=== PATIENT | female | born 1960 | race Caucasian/White ===

== ENCOUNTER 2021-07-28 01:12 | Emergency (ER) | payer OTHER, MEDICAID ==
--- NOTE | 2021-07-28 01:42 | EDM.PDOC ---
ED HPI GENERAL MEDICAL PROBLEM - General Chief Complaint: General Stated Complaint: MASECTOMY CONCERNS Time Seen by Provider: 07/28/21 01:30 Source of Information: Reports: Patient History Limitations: Reports: No Limitations - History of Present Illness INITIAL COMMENTS - FREE TEXT/NARRATIVE: Patient is a 61-year-old female presenting to the emergency room with concerns about her right breast. She states that she had a bilateral mastectomy done which was followed by breast reconstruction. The right breast demonstrated small area of wound opening yesterday and she went into the [place] emergency room. Her surgeon scheduled her for revision on Sunday but earlier this morning the wound opened up even more. Patient is unsure of what she should do. She is already taking clindamycin. She states she lifted up her grandchild today that may have contributed. She is otherwise denying fevers, chills, pain, discharge. - Related Data Allergies Allergy/AdvReac Type Severity Reaction Status Date / Time No Known Allergies Allergy Verified 07/28/21 01:30 ED ROS GENERAL - Review of Systems Review Of Systems: Comprehensive ROS is negative, except as noted in HPI. ED EXAM, GENERAL - Physical Exam Exam: See Below Free Text/Narrative:: I have reviewed the triage vital signs Const: Well nourished, well developed, appears stated age Eyes: no conjunctival injection HENT: No signs of trauma or swelling, Neck supple without meningismus CV: Regular Rate Rhythm, Warm, well-perfused extremities RESP: Unlabored respiratory effort Breast: (DIANNE Moran present) right breast demonstrates wound dehiscence in the area where the nipple would be. The area measures approximately 2 inches. The implant is visible through this wound. There is no evidence of redness, disch arge, bleeding. MSK: No gross deformities appreciated Skin: Warm, dry. No rashes Neuro: Alert, university internship II-XII grossly intact. Sensation and motor function of extremities grossly intact. Psych: Appropriate mood and affect. Course - Vital Signs Last Recorded V/S: Last Vital Signs Temp 36.6 C 07/28/21 01:26 Pulse 81 07/28/21 01:26 Resp 18 07/28/21 01:26 BP 159/81 H 07/28/21 01:26 Pulse Ox 98 07/28/21 01:26 Departure - Departure Time of Disposition: 01:41 Disposition: Home, Self-Care 01 Clinical Impression: Open breast wound - Discharge Information Referrals: PCP,Not In Area [Primary Care Provider] - Forms: ED Department Discharge Additional Instructions: Please avoid any strenuous activity. Do not lift anything over 5 pounds. Continue taking antibiotics as prescribed. Follow-up with your surgeon or whoever is on-call for them later today. Keep dressing in place until seen by your surgeon. Sepsis Event Note (ED) - Evaluation Sepsis Screening Result: No Definite Risk - Focused Exam Vital Signs: Vital Signs Temp Pulse Resp BP Pulse Ox 07/28/21 01:26 36.6 C 81 18 159/81 H 98 - Assessment/Plan Assessment:: Patient is a 61-year-old female presenting with wound dehiscence to her right breast. There is no signs of active bleeding or infection. Unfortunately, there is little that can be done in the middle of the night tonight. As this is not an emergency. We did clean the area with antiseptic and applied antibacterial ointment. The patient was placed in a sterile dressing and a halter top type fashion. We did extensive education regarding what to be done in the next 24 hours including getting in touch with her surgeons group later today. We will not do any stitching or Steri-Strips as I do not think the benefit of aggressive risk. She will have an appoint with her surgeon on Sunday morning. Questions were addressed and answered. Patient agrees with plan of care.
== END 2021-07-28 01:54 | disposition home or self-care (01) ==
LOC: JD.ED 01:12
DX: S21.001A Unspecified open wound of right breast, initial encounter (principal); Z90.12 Acquired absence of left breast and nipple; X58.XXXA Exposure to other specified factors, initial encounter
CPT/HCPCS: 99283